=== PATIENT | male | born 1945 | race Caucasian/White ===

== ENCOUNTER 2018-03-08 07:08 | Day surgery (SDC) | payer MEDICARE ==
[~2018-03-08 07:08] MED LIST: KETOROLAC TROMETHAMINE 0.45% 4 DROP/0.4 ML DROPERETTE OD PRN
[2018-03-08] MEDS ORDERED: MIDAZOLAM 2 MG/2 ML INJ ONE (07:16)
[2018-03-08] MEDS: TROPICAMIDE 1% OPH SOLN 3 ML OD PRN ×3 (07:42→08:02)
[2018-03-08] MEDS: CYCLOPENTOLATE 0.2%/PHENYLEPHRINE 1% OPH SOLN 2 ML OD PRN ×3 (07:42→08:02)
[2018-03-08] MEDS: BESIFLOXACIN HCL 0.6% OPH SUSP 5 ML BOTTLE OD PRN ×4 (07:43→08:41)
[2018-03-08] MEDS: TETRACAINE HCL 0.5% OPH SOLN 0.6 ML DROPERETTE OD PRN ×3 (07:44→08:17)
[2018-03-08] MEDS ORDERED: EPINEPHRINE INJ/PF 1 MG/1 ML AMPULE ONE (08:24)
[2018-03-08] MEDS ORDERED: TOBRAMYCIN SULFATE/DEXAMETH OPH OINTMENT 3.5 GM ONE (08:24)
[2018-03-08] MEDS ORDERED: CHONDR SU A NA/HYALUR INTRAOC KIT (SURGICARE) ONE (08:24)
[2018-03-08] MEDS ORDERED: LIDOCAINE 1% INJ-PF (10 MG/ML) 30 ML SDV ONE (08:24)
== END 2018-03-08 09:18 | disposition home or self-care (01) ==
LOC: SC 07:08
PROVIDERS: ATTEND Ophthalmology
DX: H25.11 Age-related nuclear cataract, right eye (principal); M19.90 Unspecified osteoarthritis, unspecified site; J44.9 Chronic obstructive pulmonary disease, unspecified; I25.10 Atherosclerotic heart disease of native coronary artery without angina pectoris; I10 Essential (primary) hypertension; E78.00 Pure hypercholesterolemia, unspecified; I49.9 Cardiac arrhythmia, unspecified; F17.210 Nicotine dependence, cigarettes, uncomplicated; Z79.82 Long term (current) use of aspirin; Z79.899 Other long term (current) drug therapy; Z79.51 Long term (current) use of inhaled steroids; I25.2 Old myocardial infarction; Z95.2 Presence of prosthetic heart valve; Z95.0 Presence of cardiac pacemaker
CPT/HCPCS: 66984; V2630; J2250; J3490 ×3; A9270; J0171; 142

== ENCOUNTER 2018-03-22 06:20 | Day surgery (SDC) | payer MEDICAID, MEDICARE ==
[~2018-03-22 06:20] MED LIST changes: -KETOROLAC TROMETHAMINE 0.45% 4 DROP/0.4 ML DROPERETTE OD PRN; +KETOROLAC TROMETHAMINE 0.45% 4 DROP/0.4 ML DROPERETTE OS PRN
[2018-03-22] MEDS: TROPICAMIDE 1% OPH SOLN 3 ML OS PRN ×3 (06:48→07:08)
[2018-03-22] MEDS: CYCLOPENTOLATE 0.2%/PHENYLEPHRINE 1% OPH SOLN 2 ML OS PRN ×3 (06:48→07:08)
[2018-03-22] MEDS: BESIFLOXACIN HCL 0.6% OPH SUSP 5 ML BOTTLE OS PRN ×4 (06:48→07:56)
[2018-03-22] MEDS: TETRACAINE HCL 0.5% OPH SOLN 0.6 ML DROPERETTE OS PRN ×3 (06:49→07:30)
[2018-03-22] MEDS ORDERED: MIDAZOLAM 2 MG/2 ML INJ ONE ×2 (06:58→07:25)
[2018-03-22] MEDS ORDERED: EPINEPHRINE INJ/PF 1 MG/1 ML AMPULE ONE (07:13)
[2018-03-22] MEDS ORDERED: LIDOCAINE 1% INJ-PF (10 MG/ML) 30 ML SDV ONE (07:14)
[2018-03-22] MEDS ORDERED: CHONDR SU A NA/HYALUR INTRAOC KIT (SURGICARE) ONE (07:14)
[2018-03-22] MEDS: TOBRAMYCIN SULFATE/DEXAMETH OPH OINTMENT 3.5 GM ONE ×2 (07:56)
== END 2018-03-22 08:56 | disposition home or self-care (01) ==
LOC: SC 06:20
PROVIDERS: ATTEND Ophthalmology
DX: H25.12 Age-related nuclear cataract, left eye (principal); Z98.41 Cataract extraction status, right eye; F17.210 Nicotine dependence, cigarettes, uncomplicated; M19.90 Unspecified osteoarthritis, unspecified site; J44.9 Chronic obstructive pulmonary disease, unspecified; I25.10 Atherosclerotic heart disease of native coronary artery without angina pectoris; I10 Essential (primary) hypertension; E78.00 Pure hypercholesterolemia, unspecified; Z79.51 Long term (current) use of inhaled steroids; Z79.899 Other long term (current) drug therapy; Z79.82 Long term (current) use of aspirin; Z95.0 Presence of cardiac pacemaker; Z95.2 Presence of prosthetic heart valve
CPT/HCPCS: 66984; V2630; J2250; J3490 ×3; A9270; J0171; 142

== ENCOUNTER 2019-03-17 06:02 | Emergency (ER) | payer MEDICARE, MEDICAID ==
[2019-03-17 07:37] LABS: ABSOLUTE LYMPHOCYTES (AUTO) 0.6 10^3/uL (0.5-4.7); ABSOLUTE MONOCYTES (AUTO) 0.7 10^3/uL (0.1-1.4); ABSOLUTE NEUT (AUTO) 5.5 10^3/uL (1.7-8.2); BASOPHILS % (AUTO) 0.3 % (0-2); EOSINOPHILS % (AUTO) 0.6 % (0-6); HEMATOCRIT 35.8 % (37.9-51.0); HEMOGLOBIN 12.3 g/dL (13.5-17.0); LYMPHOCYTES % (AUTO) 8.5 % (13-45); MEAN CORPUSCULAR HGB CONC 34.5 g/dL (32.0-36.0); MEAN CORPUSCULAR VOLUME 93 fl (80-97); MONOCYTES % (AUTO) 10.9 % (3-13); PLATELET COUNT 175 10^3/uL (150-450); RED BLOOD COUNT 3.86 10^6/uL (4.35-5.55); RED CELL DISTRIBUTION WIDTH 12.5 % (11.5-14.0); SEGMENTED NEUTROPHILS % (AUTO) 79.7 % (42-78); TOTAL CELLS COUNTED % (AUTO) 100 %; WHITE BLOOD COUNT 6.9 10^3/uL (4.0-10.5)
[2019-03-17 07:50] LABS: ALANINE AMINOTRANSFERASE 24 U/L (21-72); ALBUMIN 4.2 g/dL (3.5-5.0); ALKALINE PHOSPHATASE 88 U/L (38-126); ANION GAP 10 (5-19); ASPARTATE AMINO TRANSFERASE 20 U/L (17-59); BILIRUBIN,DIRECT 0.4 mg/dL (0.0-0.4); BILIRUBIN,TOTAL 0.6 mg/dL (0.2-1.3); BLOOD UREA NITROGEN 13 mg/dL (7-20); CALCIUM 9.3 mg/dL (8.4-10.2); CARBON DIOXIDE 26 mmol/L (22-30); CHLORIDE 104 mmol/L (98-107); GLUCOSE 124 mg/dL (75-110); POTASSIUM 4.8 mmol/L (3.6-5.0); SODIUM 140.4 mmol/L (137-145); TOTAL PROTEIN 6.8 g/dL (6.3-8.2)
[2019-03-17] MEDS ORDERED: IPRATROPIUM/ALBUTEROL 0.5-2.5 MG/3 ML AMPUL NEB ONE (07:54)
[2019-03-17] MEDS ORDERED: DOXYCYCLINE HYCLATE 100 MG TABLET PO ONE (07:55)
[2019-03-17] MEDS ORDERED: METHYLPREDNISOLONE INJ 125 MG/2 ML SDV IV ONE (07:55)
--- NOTE | 2019-03-17 07:59 | ER Document Report ---
ED General - General Chief Complaint: Breathing Difficulty Stated Complaint: TROUBLE BREATHING Time Seen by Provider: 03/17/19 07:50 Primary Care Provider: BREANA ROMO MD [Primary Care Provider] - Follow up as needed Mode of Arrival: Medic Information source: Patient, Emergency Med Personnel, [facility] Records Notes: 73-year-old male with coronary artery disease, hypertension, COPD presents with complaint of shortness of breath that has been ongoing for 1 week. Patient states he has had associated nonproductive cough, rhinorrhea, nasal congestion. Shortness of breath is worse with exertion. He denies any recent fever, chills, chest pain, abdominal pain, recent antibiotic or steroid use. Patient does continue to smoke. Patient is on continuous oxygen 2 L. TRAVEL OUTSIDE OF THE [place] IN LAST 30 DAYS: No - HPI Onset: Other Onset/Duration: Gradual, Persistent, Worse Quality of pain: Burning Severity: Mild Associated symptoms: Allergy/hay fever, Chest pain - With coughing only, Nonproductive cough, Rhinnorhea, Sinus pain/drainage, Shortness of breath. denies: Body/muscle aches, Chills, Diarrhea, Fever, Hurts to breath, Leg swelling, Nausea, Vomiting Exacerbated by: Movement Relieved by: Remaining still Similar symptoms previously: Yes Recently seen / treated by doctor: Yes - Related Data Allergies/Adverse Reactions: metoprolol Allergy (Intermediate, Verified 03/22/18 06:53) Hives acetaminophen [From Tylenol] Adverse Reaction (Mild, Verified 03/22/18 06:53) Nausea Past Medical History - General Information source: Patient - Social History Smoking Status: Current Every Day Smoker Cigarette use (# per day): Yes - 10 Smoking Education Provided: Yes - Smoking cessation counseling was provided for 4 minutes at the bedside Frequency of alcohol use: None Drug Abuse: None Lives with: Alone Family History: Reviewed & Not Pertinent Patient has suicidal ideation: No Patient has homicidal ideation: No - Past Medical History Cardiac Medical History: Reports: Hx Heart Attack - 2002 STENT, Hx Hypertension - MEDS Pulmonary Medical History: Reports: Hx COPD Denies: Hx Asthma Neurological Medical History: Denies: Hx Cerebrovascular Accident, Hx Seizures Renal/ Medical History: Denies: Hx Peritoneal Dialysis GI Medical History: Denies: Hx Hepatitis, Hx Hiatal Hernia, Hx Ulcer Infectious Medical History: Denies: Hx Hepatitis Past Surgical History: Reports: Hx Cardiac Catheterization - x2 stents, Hx Cholecystectomy, Hx Open Heart Surgery - 2016 HEART VALVE, Hx Pacemaker - [employer] - Immunizations Hx Diphtheria, Pertussis, Tetanus Vaccination: - unknown Review of Systems - Review of Systems Notes: REVIEW OF SYSTEMS: CONSTITUTIONAL : Denies fever, chills, or sweats. Denies recent illness. Denies weight loss, recent hospitalizations. EENT: Denies visual changes, eye pain. Denies sore throat, oral lesions, difficulty swallowing. CARDIOVASCULAR: Denies chest pain. Denies palpitations. Denies lower extremity edema. RESPIRATORY: + cough. + shortness of breath, wheezing. GASTROINTESTINAL: Denies abdominal pain or distention. Denies nausea, vomiting, or diarrhea. Denies blood in vomitus, stools, or per rectum. Denies black, tarry stools. Denies constipation. GENITOURINARY: Denies difficulty urinating, painful urination, frequency, blood in urine, testicular pain or penile discharge. MUSCULOSKELETAL: Denies back or neck pain or stiffness. Denies joint pain or swelling. SKIN: Denies rash, lesions or sores. HEMATOLOGIC : Denies easy bruising or bleeding. LYMPHATIC: Denies swollen glands. NEUROLOGICAL: Denies confusion or altered mental status. Denies loss of consciousness. Denies dizziness or lightheadedness. Denies headache. Denies weakness or paralysis. Denies problems difficulty with ambulation, slurred speech. Denies sensory loss, numbness, or tingling. Denies seizures. PSYCHIATRIC: Denies anxiety or stress. Denies depression, suicidal ideation, or Physical Exam - Vital signs Vitals: Resp Pulse Ox 25 H 99 03/17/19 06:07 03/17/19 06:07 - Notes Notes: PHYSICAL EXAMINATION: GENERAL: Well-appearing, well-nourished and in no acute distress. HEAD: Atraumatic, normocephalic. EYES: Pupils equal round and reactive to light, extraocular movements intact, sclera anicteric, conjunctiva are normal. ENT: Nares patent, oropharynx clear without exudates. Moist mucous membranes. NECK: Normal range of motion, supple without lymphadenopathy LUNGS: Diffuse wheezing, mild accessory muscle use, on nasal cannula 3 L. HEART: tachycardic, regular rhythm without murmurs ABDOMEN: Soft, nontender, nondistended abdomen. No guarding, no rebound. No masses appreciated. Musculoskeletal: Normal range of motion, no pitting or edema. No cyanosis. NEUROLOGICAL: Cranial nerves grossly intact. Normal speech, normal gait. Normal sensory, motor exams PSYCH: Normal mood, normal affect. SKIN: Warm, Dry, normal turgor, no rashes or lesions noted. Course - Re-evaluation Re-evalutation: Laboratory 03/17/19 03/17/19 03/17/19 05:38 05:38 05:38 WBC 6.9 RBC 3.86 L Hgb 12.3 L Hct 35.8 L MCV 93 MCH 32.0 MCHC 34.5 RDW 12.5 Plt Count 175 Seg Neutrophils % 79.7 H Lymphocytes % 8.5 L Monocytes % 10.9 Eosinophils % 0.6 Basophils % 0.3 Absolute Neutrophils 5.5 Absolute Lymphocytes 0.6 Absolute Monocytes 0.7 Absolute Eosinophils 0.0 Absolute Basophils 0.0 VBG pH VBG pCO2 VBG HCO3 VBG Base Excess Sodium 140.4 Potassium 4.8 Chloride 104 Carbon Dioxide 26 Anion Gap 10 BUN 13 Creatinine 1.04 Est GFR ( Amer) > 60 Est GFR (Non-Af Amer) > 60 Glucose 124 H Calcium 9.3 Total Bilirubin 0.6 Direct Bilirubin 0.4 Neonat Total Bilirubin Not Reportable Neonat Direct Bilirubin Not Reportable Neonat Indirect Bili Not Reportable AST 20 ALT 24 Alkaline Phosphatase 88 Creatine Kinase 84 Troponin I NT-Pro-B Natriuret Pep Total Protein 6.8 Albumin 4.2 03/17/19 03/17/19 05:38 08:05 WBC RBC Hgb Hct MCV MCH MCHC RDW Plt Count Seg Neutrophils % Lymphocytes % Monocytes % Eosinophils % Basophils % Absolute Neutrophils Absolute Lymphocytes Absolute Monocytes Absolute Eosinophils Absolute Basophils VBG pH 7.37 VBG pCO2 47.4 VBG HCO3 27.0 VBG Base Excess 1.3 Sodium Potassium Chloride Carbon Dioxide Anion Gap BUN Creatinine Est GFR ( Amer) Est GFR (Non-Af Amer) Glucose Calcium Total Bilirubin Direct Bilirubin Neonat Total Bilirubin Neonat Direct Bilirubin Neonat Indirect Bili AST ALT Alkaline Phosphatase Creatine Kinase Troponin I < 0.012 NT-Pro-B Natriuret Pep 448 Total Protein Albumin Chest X-Ray 03/17/19 07:29 IMPRESSION: NO ACUTE RADIOGRAPHIC FINDING IN THE CHEST. Temp Pulse Resp BP Pulse Ox 98.8 F 18 149/84 H 98 03/17/19 08:00 03/17/19 07:01 03/17/19 07:01 03/17/19 07:29 03/17/19 09:10 Patient was reevaluated after receiving breathing treatments, magnesium, Solu- Medrol. Patient reports improvement of his shortness of breath. Patient presents with a mild exacerbation of their baseline COPD. Mild wheezing at time of presentation but vitals do not show significant hypoxemia or tachypnea. Mild retractions. Patient did clinically improve after receiving nebulizers here in the emergency department. Chest x-ray without evidence of an acute pneumonia. Laboratories do not show acute kidney injury or significant leukocytosis. Patient able to ambulate without any respiratory distress. Based on patient's overall reassuring assessment, I believe they are stable for outpatient management with steroids and oral antibiotics. Patient has nebulizers at home. I do not suspect an acute alternative pathology at this time based on history and exam including acute pulmonary embolus, ACS, pneumothorax, or aortic dissection. At this time will discharge with return precautions and follow-up recommendations. Verbal discharge instructions given a the bedside and opportunity for questions given. Medication warnings reviewed. Patient is in agreement with this plan and has verbalized understanding of return precautions and the need for primary care follow-up in the next 24-72 hours. - Vital Signs Vital signs: Temp Pulse Resp BP Pulse Ox 98.8 F 18 149/84 H 98 03/17/19 08:00 03/17/19 07:01 03/17/19 07:01 03/17/19 07:29 - Laboratory Result Diagrams: 03/17/19 05:38 03/17/19 05:38 Laboratory results interpreted by me: 03/17/19 03/17/19 05:38 05:38 RBC 3.86 L Hgb 12.3 L Hct 35.8 L Seg Neutrophils % 79.7 H Lymphocytes % 8.5 L Glucose 124 H - Diagnostic Test Radiology reviewed: Image reviewed, Reports reviewed - EKG Interpretation by Me When compared to previous EKG there are: No significant change - Atrial sensed ventricular paced rhythm heart rate 102 Discharge - Discharge Clinical Impression: COPD exacerbation Condition: Good Disposition: HOME, SELF-CARE Instructions: Chronic Obstructive Lung Disease ([facility]) Additional Instructions: You were seen for a COPD exacerbation. Your symptoms improved with treatment here in the emergency department. However, it is very important that you return to the emergency department immediately if you began to have worsening difficulty breathing that does not respond to your normal home nebulizers. You are also being sent home on a five-day course of steroids that you should start taking tomorrow. Please also take the antibiotics as prescribed. Please also follow closely with your primary care physician. You should eturn to emergency department if you develop fever greater than 101, persistent cough, persistent vomiting, pass out, or any other symptoms that are concerning to you. Prescriptions: Doxycycline Hyclate 100 mg PO BID #14 capsule Prednisone [Deltasone 20 mg Tablet] 2 tab PO DAILY 5 Days #10 tablet Forms: Elevated Blood Pressure, Smoking Cessation Education Referrals: BREANA ROMO MD [Primary Care Provider] - Follow up in 3-5 days
[2019-03-17 08:22] LABS: VENOUS BLOOD BASE EXCESS 1.3 mmol/L; VENOUS BLOOD PCO2 47.4 mmHg (35-63); VENOUS BLOOD PH 7.37 (7.30-7.42)
[2019-03-17 08:22] LABS: NT PRO BNP 448 pg/mL (<450)
[2019-03-17 08:24] LABS: TROPONIN I < 0.012 ng/mL
[2019-03-17] MEDS: MAGNESIUM SULFATE/D5W 1 GM/100 ML RTUPB IV SCH ×2 (08:24→10:04)
--- NOTE | 2019-03-17 08:30 | RADIOLOGY REPORT (SQ) ---
EXAM DESCRIPTION: CHEST SINGLE VIEW COMPLETED DATE/TIME: 03/17/2019 7:52 am REASON FOR STUDY: SOB COMPARISON: 02/23/2016 EXAM PARAMETERS: NUMBER OF VIEWS: One view. TECHNIQUE: Single frontal radiographic view of the chest acquired. RADIATION DOSE: NA LIMITATIONS: None. FINDINGS: LUNGS AND PLEURA: No opacities, masses or pneumothorax. No pleural effusion. MEDIASTINUM AND HILAR STRUCTURES: No masses. Contour normal. HEART AND VASCULAR STRUCTURES: Heart normal in size. Normal vasculature. BONES: No acute findings. HARDWARE: Left dual lead pacemaker. OTHER: No other significant finding. IMPRESSION: NO ACUTE RADIOGRAPHIC FINDING IN THE CHEST. TECHNICAL DOCUMENTATION: JOB ID: [id number]- All Rights Reserved Reading location - IP/workstation name: [email or web address]
[2019-03-17 10:16] LABS: APPEARANCE,URINE CLEAR; BILIRUBIN,URINE NEGATIVE (NEGATIVE); COLOR,URINE YELLOW; GLUCOSE, URINE NEGATIVE (NEGATIVE); KETONES,URINE NEGATIVE (NEGATIVE); LEUKOCYTE ESTERASE,URINE NEGATIVE (NEGATIVE); NITRITE,URINE NEGATIVE (NEGATIVE); PROTEIN,URINE NEGATIVE (NEGATIVE); URINE SPECIFIC GRAVITY 1.018
[2019-03-17 11:23] VITALS: BP 114/69
--- NOTE | 2019-03-17 12:44 | EKG REPORT ---
SEVERITY:- ABNORMAL ECG - ATRIAL-SENSED VENTRICULAR-PACED RHYTHM : Confirmed by: Lisbeth Todd 17-Mar-2019 12:43:11
--- NOTE | 2019-03-17 12:44 | EKG REPORT ---
SEVERITY:- ABNORMAL ECG - ATRIAL-SENSED VENTRICULAR-PACED RHYTHM : Confirmed by: Lisbeth Todd 17-Mar-2019 12:43:21
== END 2019-03-17 11:27 | disposition home or self-care (01) ==
LOC: ER 06:02
DX: J44.1 Chronic obstructive pulmonary disease with (acute) exacerbation (principal); R06.02 Shortness of breath; R05 Cough; J34.89 Other specified disorders of nose and nasal sinuses; R09.81 Nasal congestion; I10 Essential (primary) hypertension; I25.10 Atherosclerotic heart disease of native coronary artery without angina pectoris; F17.210 Nicotine dependence, cigarettes, uncomplicated
CPT/HCPCS: 93005; 94640; 99285; 96365; 96366; 36415; 82550; 85025; 80053; 81001; 84484; 82803; 83880; 71045; 93010; A9270 ×2; J3475; J7620

== ENCOUNTER 2019-07-08 11:10 | Emergency (ER) | payer MEDICARE, MEDICAID ==
--- NOTE | 2019-07-08 12:02 | ER Document Report ---
ED Medical Screen (RME) - General Chief Complaint: Flu Symptoms Stated Complaint: FLU SYMPTOMS Time Seen by Provider: 07/08/19 11:57 Primary Care Provider: BREANA ROMO MD [Primary Care Provider] - Follow up as needed TRAVEL OUTSIDE OF THE [place] IN LAST 30 DAYS: No - HPI Notes: 07/08/19 12:03 Patient is a 74-year-old male with a history of coronary artery disease with stent placement, artificial heart valve, artificial heart valve, hypertension, COPD and on oxygen only at nighttime at 2 L via nasal cannula (baseline 90-92% on 2L) who presents complaining of fatigue, productive cough, increased shortness of breath, and some bilateral chest pain primarily with coughing over the past 3 to 4 days. Patient states that he has been sleeping often since onset and has not been eating much. He did have diarrhea on tuesday that has since resolved. Denies MURRAY, fever, neck pain, URI, Abd pain, dysuria, back pain, or rash. I have treated and performed a rapid initial assessment of this patient. A comprehensive ED assessment and evaluation of the patient, analysis of test results and completion of medical decision making process will be conducted by additional ED providers. PHYSICAL EXAMINATION: GENERAL: Well-appearing, well-nourished and in no acute distress. A&Ox4. Answers questions appropriately. LUNGS: Scant expiratory wheeze noted. No retractions. HEART: Regular rate and rhythm Extremities: No cyanosis, clubbing, or edema b/l. NEUROLOGICAL: Normal speech, normal gait. PSYCH: Normal mood, normal affect. - Related Data Allergies/Adverse Reactions: metoprolol Allergy (Intermediate, Verified 07/08/19 11:13) Hives acetaminophen [From Tylenol] Adverse Reaction (Mild, Verified 07/08/19 11:13) Nausea Past Medical History - Past Medical History Cardiac Medical History: Reports: Hx Heart Attack - 2002 STENT, Hx Hypertension - MEDS Pulmonary Medical History: Reports: Hx COPD Denies: Hx Asthma Neurological Medical History: Denies: Hx Cerebrovascular Accident, Hx Seizures Renal/ Medical History: Denies: Hx Peritoneal Dialysis GI Medical History: Denies: Hx Hepatitis, Hx Hiatal Hernia, Hx Ulcer Infectious Medical History: Denies: Hx Hepatitis Past Surgical History: Reports: Hx Cardiac Catheterization - x2 stents, Hx Cholecystectomy, Hx Open Heart Surgery - 2016 HEART VALVE, Hx Pacemaker - [employer] - Immunizations Hx Diphtheria, Pertussis, Tetanus Vaccination: - unknown Physical Exam - Vital signs Vitals: Temp Pulse Resp BP Pulse Ox 98.8 F 99 17 120/69 91 L 07/08/19 11:20 07/08/19 11:20 07/08/19 11:20 07/08/19 11:20 07/08/19 11:20 Course - Vital Signs Vital signs: Temp Pulse Resp BP Pulse Ox 98.8 F 99 17 120/69 91 L 07/08/19 11:20 07/08/19 11:20 07/08/19 11:20 07/08/19 11:20 07/08/19 11:20 Doctor's Discharge - Discharge Referrals: BREANA ROMO MD [Primary Care Provider] - Follow up as needed
[2019-07-08] MEDS ORDERED: IPRATROPIUM/ALBUTEROL 0.5-2.5 MG/3 ML AMPUL NEB ONE (12:05)
[2019-07-08 12:33] LABS: ABSOLUTE EOSINOPHILS # (AUTO) 0.2 10^3/uL (0.0-0.6); ABSOLUTE LYMPHOCYTES (AUTO) 0.9 10^3/uL (0.5-4.7); ABSOLUTE MONOCYTES (AUTO) 0.9 10^3/uL (0.1-1.4); ABSOLUTE NEUT (AUTO) 5.3 10^3/uL (1.7-8.2); BASOPHILS % (AUTO) 0.2 % (0-2); EOSINOPHILS % (AUTO) 2.1 % (0-6); HEMATOCRIT 35.3 % (37.9-51.0); LYMPHOCYTES % (AUTO) 11.9 % (13-45); MEAN CORPUSCULAR HEMOGLOBIN 31.2 pg (27.0-33.4); MEAN CORPUSCULAR HGB CONC 34.1 g/dL (32.0-36.0); MEAN CORPUSCULAR VOLUME 92 fl (80-97); MONOCYTES % (AUTO) 12.4 % (3-13); PLATELET COUNT 244 10^3/uL (150-450); RED BLOOD COUNT 3.85 10^6/uL (4.35-5.55); RED CELL DISTRIBUTION WIDTH 12.7 % (11.5-14.0); SEGMENTED NEUTROPHILS % (AUTO) 73.4 % (42-78); TOTAL CELLS COUNTED % (AUTO) 100 %; WHITE BLOOD COUNT 7.3 10^3/uL (4.0-10.5)
--- NOTE | 2019-07-08 12:48 | RADIOLOGY REPORT (SQ) ---
EXAM DESCRIPTION: CHEST SINGLE VIEW COMPLETED DATE/TIME: 07/08/2019 12:38 pm REASON FOR STUDY: cough, sob, cp COMPARISON: 03/17/2019. NUMBER OF VIEWS: One view. TECHNIQUE: Single frontal radiographic view of the chest acquired. LIMITATIONS: None. FINDINGS: LUNGS AND PLEURA: No opacities, masses or pneumothorax. No pleural effusion. MEDIASTINUM AND HILAR STRUCTURES: No masses. Contour normal. HEART AND VASCULAR STRUCTURES: Heart normal in size. Normal vasculature. BONES: No acute findings. HARDWARE: Left transvenous pacer with leads grossly intact. OTHER: No other significant finding. IMPRESSION: NO SIGNIFICANT RADIOGRAPHIC FINDING IN THE CHEST. TECHNICAL DOCUMENTATION: JOB ID: [id number] [employer]- All Rights Reserved Reading location - IP/workstation name: [email or web address]
[2019-07-08 12:51] LABS: ALBUMIN 3.7 g/dL (3.5-5.0); ALKALINE PHOSPHATASE 80 U/L (38-126); ANION GAP 9 (5-19); ASPARTATE AMINO TRANSFERASE 45 U/L (17-59); BILIRUBIN,DIRECT 0.2 mg/dL (0.0-0.4); BILIRUBIN,TOTAL 0.4 mg/dL (0.2-1.3); BLOOD UREA NITROGEN 15 mg/dL (7-20); CALCIUM 9.3 mg/dL (8.4-10.2); CARBON DIOXIDE 28 mmol/L (22-30); CHLORIDE 102 mmol/L (98-107); GLUCOSE 147 mg/dL (75-110); POTASSIUM 3.9 mmol/L (3.6-5.0); TOTAL PROTEIN 6.3 g/dL (6.3-8.2)
[2019-07-08 13:02] LABS: TROPONIN I 0.014 ng/mL
[2019-07-08] MEDS ORDERED: ALBUTEROL SULFATE 0.083% NEB 2.5 MG/3 ML AMPUL NEB ONE ×2 (13:35→14:16)
[2019-07-08] MEDS ORDERED: CEFTRIAXONE 1 GM/D5W RTU 1 GM/50 ML RTUPB IV ONE (13:35)
[2019-07-08] MEDS ORDERED: METHYLPREDNISOLONE INJ 125 MG/2 ML SDV IV ONE (13:35)
[2019-07-08] MEDS ORDERED: DOXYCYCLINE HYCLATE 100 MG TABLET PO ONE (13:37)
--- NOTE | 2019-07-08 13:40 | ER Document Report ---
ED Respiratory Problem - General Chief Complaint: Flu Symptoms Stated Complaint: FLU SYMPTOMS Time Seen by Provider: 07/08/19 11:57 Primary Care Provider: BREANA ROMO MD [Primary Care Provider] - Follow up tomorrow Mode of Arrival: Ambulatory Information source: Patient Notes: Patient presents complaining of chronic cough that has worsened over the past several days. Patient reports increased shortness of breath as well as increased sputum production that has turned green in color. Patient states that he does have some chest pain that he describes as a rib tenderness with coughing only for the past 3 or 4 days. Patient states he does not have any chest pain if he is not coughing. Patient states that 5 days ago he had a fever. Patient denies any fever since then. No nausea or vomiting. Patient does admit to smoking about 1/2 pack/day still. TRAVEL OUTSIDE OF THE [place] IN LAST 30 DAYS: No - HPI Patient complains to provider of: Chest pain - with cough, COPD, Cough Onset: Last week Duration: Worse/persistent Initiating Event: No: Out of meds Quality of pain: Achy Pain Level: 1 Context: Hx COPD, Smoker. denies: Hx asthma, Recent surgery Chest pain/discomfort: Intermittent - With coughing only Cough: Productive Sputum amount: Moderate Sputum color: Green, Yellow Sputum consistency: Thick At home treatment: Bronchodilators, Oxygen Associated symptoms: Chest pain/discomfort, Cough, Fever, Short of breath, Wheezing. denies: Bloody cough Similar symptoms previously: Yes Recently seen / treated by doctor: No - Related Data Allergies/Adverse Reactions: metoprolol Allergy (Intermediate, Verified 07/08/19 11:13) Hives acetaminophen [From Tylenol] Adverse Reaction (Mild, Verified 07/08/19 11:13) Nausea Past Medical History - General Information source: Patient - Social History Smoking Status: Current Every Day Smoker Chew tobacco use (# tins/day): No Frequency of alcohol use: None Drug Abuse: None Lives with: Alone Family History: Reviewed & Not Pertinent Patient has suicidal ideation: No Patient has homicidal ideation: No - Past Medical History Cardiac Medical History: Reports: Hx Heart Attack - 2002 STENT, Hx Hypertension - MEDS Pulmonary Medical History: Reports: Hx COPD Denies: Hx Asthma Neurological Medical History: Denies: Hx Cerebrovascular Accident, Hx Seizures Renal/ Medical History: Denies: Hx Peritoneal Dialysis Past Surgical History: Reports: Hx Cardiac Catheterization - x2 stents, Hx Cholecystectomy, Hx Open Heart Surgery - 2016 HEART VALVE, Hx Pacemaker - [employer] - Immunizations Hx Diphtheria, Pertussis, Tetanus Vaccination: - unknown Review of Systems - Review of Systems Constitutional: Fever EENT: No symptoms reported Cardiovascular: Chest pain - With coughing only. denies: Dizziness, Lightheaded Respiratory: Cough, Short of breath, Sputum, Wheezing. denies: Hemoptysis Gastrointestinal: No symptoms reported. denies: Abdominal pain, Nausea, Vomiting Genitourinary: No symptoms reported Male Genitourinary: No symptoms reported Musculoskeletal: No symptoms reported Skin: No symptoms reported Hematologic/Lymphatic: No symptoms reported Neurological/Psychological: No symptoms reported Physical Exam - Vital signs Vitals: Temp Pulse Resp BP Pulse Ox 98.8 F 99 17 120/69 91 L 07/08/19 11:20 07/08/19 11:20 07/08/19 11:20 07/08/19 11:20 07/08/19 11:20 - General General appearance: Appears well, Alert - HEENT Head: Normocephalic, Atraumatic Eyes: Normal Conjunctiva: Normal Nasal: Normal Mouth/Lips: Normal Mucous membranes: Normal Neck: Normal, Supple. No: Lymphadenopathy - Respiratory Respiratory status: No respiratory distress Chest status: Pain with cough. No: Pain with deep breathing Breath sounds: Rhonchi, Wheezing Chest palpation: Normal - Cardiovascular Rhythm: Regular Heart sounds: S1 appreciated, S2 appreciated Murmur: No - Abdominal Inspection: Normal Distension: No distension Tenderness: Nontender - Back Back: Normal, Nontender. No: CVA tenderness - Extremities General upper extremity: Normal inspection, Nontender, Normal strength General lower extremity: Normal inspection, Nontender, Normal strength - Neurological Neuro grossly intact: Yes Cognition: Normal Ayla Coma Scale Eye Opening: Spontaneous Sherrard Coma Scale Verbal: Oriented Sherr[place] Coma Scale Motor: Obeys Commands Sherrard Coma Scale Total: 15 - Psychological Associated symptoms: Normal affect, Normal mood - Skin Skin Temperature: Warm Skin Moisture: Dry Skin Color: Normal Course - Re-evaluation Re-evalutation: 07/08/19 15:52 Patient with increased air movement, faint scattered wheezing continues. Patient reports feeling better after breathing treatment and medications. Patient road tested in the hallway, oxygen saturation 97% with heart rate of 100. Patient presents with chest pain only with coughing. Patient reports increased cough frequency and sputum production in the setting of a history of COPD. We will plan to treat with antibiotics steroids and use of his nebulizer at home. The patient has atypical chest pain as the patient's chest pain is not suggestive of pulmonary embolus, cardiac ischemia, aortic dissection, or other serious etiology. Given the extremely low risk of these diagnoses for the test in evaluation for these possibilities does not appear to be indicated at this time. Patient has been instructed to return if the symptoms worsen or change in any way. - Vital Signs Vital signs: Temp Pulse Resp BP Pulse Ox 98.4 F 99 28 H 126/87 H 96 07/08/19 16:01 07/08/19 11:20 07/08/19 16:01 07/08/19 16:01 07/08/19 16:01 - Laboratory Result Diagrams: 07/08/19 12:18 07/08/19 12:18 Laboratory results interpreted by me: 07/08/19 07/08/19 12:18 12:18 RBC 3.85 L Hgb 12.0 L Hct 35.3 L Lymph % (Auto) 11.9 L Glucose 147 H 07/08/19 15:53 Labs- Entire Visit 07/08/19 07/08/19 07/08/19 12:18 12:18 12:18 WBC 7.3 RBC 3.85 L Hgb 12.0 L Hct 35.3 L MCV 92 MCH 31.2 MCHC 34.1 RDW 12.7 Plt Count 244 Lymph % (Auto) 11.9 L [place] % (Auto) 12.4 Eos % (Auto) 2.1 Baso % (Auto) 0.2 Absolute Neuts (auto) 5.3 Absolute Lymphs (auto) 0.9 Absolute Monos (auto) 0.9 Absolute Eos (auto) 0.2 Absolute Basos (auto) 0.0 Seg Neutrophils % 73.4 Sodium 139.1 Potassium 3.9 Chloride 102 Carbon Dioxide 28 Anion Gap 9 BUN 15 Creatinine 0.95 Est GFR ( Amer) > 60 Est GFR (MDRD) Non-Af > 60 Glucose 147 H Calcium 9.3 Total Bilirubin 0.4 Direct Bilirubin 0.2 Neonat Total Bilirubin Not Reportable Neonat Direct Bilirubin Not Reportable Neonat Indirect Bili Not Reportable AST 45 ALT 37 Alkaline Phosphatase 80 Troponin I 0.014 NT-Pro-B Natriuret Pep 218 Total Protein 6.3 Albumin 3.7 - Diagnostic Test Radiology reviewed: Image reviewed, Reports reviewed Discharge - Discharge Clinical Impression: COPD exacerbation Condition: Stable Disposition: HOME, SELF-CARE Instructions: Chronic Obstructive Lung Disease ([facility]), Doxycycline ([facility]), Rocephin ([facility]), Steroid Medication Additional Instructions: Return immediately for any new or worsening symptoms Followup with your primary care provider, call tomorrow to make a followup appointment Use your nebulizer machine that you have at home as prescribed Prescriptions: Prednisone [Deltasone 20 mg Tablet] 2 tab PO DAILY 4 Days tablet Doxycycline Hyclate 100 mg PO BID #20 capsule Forms: Smoking Cessation Education Referrals: BREANA ROMO MD [Primary Care Provider] - Follow up tomorrow
[2019-07-08 16:10] VITALS: BP 126/87
--- NOTE | 2019-07-08 19:27 | EKG REPORT ---
SEVERITY:- ABNORMAL ECG - ATRIAL-SENSED VENTRICULAR-PACED RHYTHM : Confirmed by: Daphne Palomino MD 08-Jul-2019 19:26:25
== END 2019-07-08 16:13 | disposition home or self-care (01) ==
LOC: ER 11:10
DX: J44.1 Chronic obstructive pulmonary disease with (acute) exacerbation (principal); R05 Cough; R06.02 Shortness of breath; R07.9 Chest pain, unspecified; R07.81 Pleurodynia; R50.9 Fever, unspecified; F17.210 Nicotine dependence, cigarettes, uncomplicated; I25.2 Old myocardial infarction; I10 Essential (primary) hypertension; Z79.899 Other long term (current) drug therapy
CPT/HCPCS: 93005; 94640 ×2; 99284; 96375; 96365; 36415; 85025; 80053; 84484; 83880; 71045; 93010; A9270 ×3; J2930; J0696; J7620

== ENCOUNTER → 2020-03-05 | Outpatient (CLI) | payer MEDICARE, MEDICAID ==
--- NOTE | 2020-03-05 18:27 | RADIOLOGY REPORT (SQ) ---
EXAM DESCRIPTION: ARTERIAL LOWER EXTREM BILAT IMAGES COMPLETED DATE/TIME: 03/05/2020 12:53 pm REASON FOR STUDY: CLAUDICATION I70.211 ATHSCL [place] ARTERIES OF EXTRM W INTRMT [id number], RIGH COMPARISON: None. TECHNIQUE: Dynamic and static pittman scale and color images acquired of the lower extremity arteries. Additional selected spectral images recorded. LIMITATIONS: None. FINDINGS: RIGHT LEG: INFLOW ARTERIES: Not imaged. FEMORAL ARTERIES:Multiphasic waveforms. Short segment occlusion distal femoral artery with reconstitu elle flow via collateral. POPLITEAL ARTERY:Multiphasic waveforms. No significant stenosis. PATENT TIBIOPERONEAL TRUNK AND 3 VESSEL RUNOFF: Yes, normal vessels. OTHER: No other significant finding. LEFT LEG: INFLOW ARTERIES: Not imaged. FEMORAL ARTERIES:Multiphasic waveforms. No significant stenosis. POPLITEAL ARTERY:Multiphasic waveforms. No significant stenosis. PATENT TIBIOPERONEAL TRUNK AND 3 VESSEL RUNOFF: Three-vessel runoff. Retrograde flow in the distal p osterior tibial artery. OTHER: No other significant finding. IMPRESSION: Right: Short segment occlusion distal femoral artery with reconstituted flow. Left: Small vessel disease. Retrograde flow in the distal posterior tibial artery. TECHNICAL DOCUMENTATION: JOB ID: [id number] [employer]- All Rights Reserved Reading location - IP/workstation name: [email or web address] [email or web address]
== END ==
LOC: SP 09:36
PROVIDERS: ATTEND Family Medicine
DX: I70.211 Atherosclerosis of native arteries of extremities with intermittent claudication, right leg (principal)
CPT/HCPCS: 93925

== ENCOUNTER → 2020-09-16 | Outpatient (CLI) | payer MEDICAID, MEDICARE ==
--- NOTE | 2020-09-16 11:41 | RADIOLOGY REPORT (SQ) ---
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 TECHNIQUE: Dynamic and static ipttman scale and color images acquired of the right lower extremity shani tobias. Additional selected spectral images recorded. JULISSA recorded. LIMITATIONS: None. FINDINGS: ABIS: 0.92-0.98 INFLOW ARTERIES: Not imaged. FEMORAL ARTERIES:Multiphasic waveforms. Normal, no velocity elevation to suggest focal stenosis. Norm al color Doppler evaluation. No aneurysm. POPLITEAL ARTERY:Multiphasic waveforms. Normal, no velocity elevation to suggest focal stenosis. Norm al color Doppler evaluation. No aneurysm. PATENT TIBIOPERONEAL TRUNK AND 3 VESSEL RUNOFF: Yes, normal vessels. TBI: Not performed. OTHER: Diffuse mural calcifications. LEFT LEG: ABIS: Normal, over 1.0. IMPRESSION: No significant stenosis. COMMENT: [facility] NORMAL: Greater than 1.0 MINIMAL DISEASE: 0.9 to 1.0 CLAUDICATION: 0.5 to 0.9 SEVERE ARTERIAL DISEASE: Less than 0.5 [facility] NORMAL: Greater than 1.0 (1.2 If Heavy Calcifications) NORMAL TO MILD ISCHEMIA: 0.8 to 1.0 MODERATE ISCHEMIA: 0.4 to 0.8 SEVERE ISCHEMIA: Less than 0.4 TECHNICAL DOCUMENTATION: JOB ID: [id number] 2010 [employer]- All Rights Reserved Reading location - IP/workstation name: [email or web address]
--- NOTE | 2020-09-16 11:41 | RADIOLOGY REPORT (SQ) ---
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 TECHNIQUE: Dynamic and static pittman scale and color images acquired of the right lower extremity shani tobias. Additional selected spectral images recorded. JULISSA recorded. LIMITATIONS: None. FINDINGS: ABIS: 0.92-0.98 INFLOW ARTERIES: Not imaged. FEMORAL ARTERIES:Multiphasic waveforms. Normal, no velocity elevation to suggest focal stenosis. Norm al color Doppler evaluation. No aneurysm. POPLITEAL ARTERY:Multiphasic waveforms. Normal, no velocity elevation to suggest focal stenosis. Norm al color Doppler evaluation. No aneurysm. PATENT TIBIOPERONEAL TRUNK AND 3 VESSEL RUNOFF: Yes, normal vessels. TBI: Not performed. OTHER: Diffuse mural calcifications. LEFT LEG: ABIS: Normal, over 1.0. IMPRESSION: No significant stenosis. COMMENT: [facility] NORMAL: Greater than 1.0 MINIMAL DISEASE: 0.9 to 1.0 CLAUDICATION: 0.5 to 0.9 SEVERE ARTERIAL DISEASE: Less than 0.5 [facility] NORMAL: Greater than 1.0 (1.2 If Heavy Calcifications) NORMAL TO MILD ISCHEMIA: 0.8 to 1.0 MODERATE ISCHEMIA: 0.4 to 0.8 SEVERE ISCHEMIA: Less than 0.4 TECHNICAL DOCUMENTATION: JOB ID: [id number] 2010 [employer]- All Rights Reserved Reading location - IP/workstation name: [email or web address]
== END ==
LOC: SP 07:43
PROVIDERS: ATTEND Surgery Vascular Surgery
DX: I99.8 Other disorder of circulatory system (principal)
CPT/HCPCS: 93922; 93926